=== PATIENT | male | born 1985 | race Two or more races ===

== ENCOUNTER 2025-02-24 15:42 | Emergency (ER) | payer SELFPAY ==
[~2025-02-24] VITALS: Ht 177.8 cm; Wt 100.0 kg
[2025-02-24 16:50] VITALS: BP 114/63; PULSE 95; RESP 18; TEMP 97.2; O2SAT 96
--- NOTE | 2025-02-24 16:57 | ED.PDOC ---
GI ASSESSMENT HPI Comments A 39 YEAR OLD MALE PRESENTS TO THE ED WITH COMPLAINT OF DIARRHEA. PATIENT STATES HE WENT TO [place] YESTERDAY AND ATE THE FOODS AND DRANK THE WATER WEIGHT IS LATER CAUSED HIM TO EXPERIENCE DIARRHEA, NAUSEA, AND BODY ACHES SHORTLY AFTER. PATIENT IS CONCERNED THAT THE FOOD AND WATER IN [place] MAY HAVE MADE HIM SICK. PATIENT DENIES FEVER, CHILLS, SHORTNESS OF BREATH, CHEST PAIN, ABDOMINAL PAIN, BLOOD DIARRHEA, VOMITING, HEADACHE, OR OTHER COMPLAINTS. NO OTHER SYMPTOMS OR MODIFYING FACTORS AT THIS TIME. PATIENT IS ALERT, ORIENTED X 4, AND HAS STEADY GAIT. Chief Complaint: Flu like Time Seen by MD: 16:04 Primary Care Provider: NONE Reviewed Notes: Nurses Notes, Medications, Allergies Allergies: Coded Allergies: NO KNOWN ALLERGIES (Unverified , 02/24/25) Home Meds Active Scripts Ciprofloxacin Hcl (Cipro) 500 Mg Tab, 1 TAB PO BID, #14 TAB Prov:KAROLYN PHAN 02/24/25 Loperamide HCl (Imodium A-D) 2 Mg Cap, 2 MG PO TID, #24 CAP Prov:KAROLYN PHAN 02/24/25 Dicyclomine Hcl (Dicyclomine Hcl) 20 Mg Tab, 1 TAB PO BID, #30 TAB Prov:KAROLYN PHAN 02/24/25 Information Source: Patient Mode of Arrival: Ambulatory Timing: Days Duration: Since onset, Days Prehospital treatment: None Quality: Cramping, Colicky Vomitus: None Stool: Loose, Watery Severity: Moderate Recent: None Recent Hx of: None Pain Location: None Modifying Factors: Nothing Associated sign and symptoms: Nausea, Diarrhea Past Medical History PAST MEDICAL HISTORY: Denies Surgical History: Denies all surgeries Family History Family History: Reviewed,noncontributory to illness Social History Smoker: Non-Smoker Alcohol: Denies ETOH Use Drugs: Denies Drug Use Lives In: Home Constitutional: denies: chills, diaphoresis, fatigue, fever, malaise, sweats, weakness, others EENTM: denies: blurred vision, double vision, ear bleeding, ear discharge, ear drainage, ear pain, ear ringing, eye pain, eye redness, hearing loss, mouth pain, mouth swelling, nasal discharge, nose bleeding, nose congestion, nose pain, photophobia, tearing, throat pain, throat swelling, voice changes, others Respiratory: denies: cough, hemoptysis, orthopnea, SOB at rest, shortness of breath, SOB with excertion, stridor, wheezing, others Cardiovascular: denies: chest pain, dizzy spells, diaphoresis, Dyspnea on exer tion, edema, irregular heart beat, left arm pain, lightheadedness, palpitations, PND, syncope, others Gastrointestinal: reports: diarrhea, nausea; denies: abdomen distended, abdominal pain, blood streaked bowels, constipated, dysphagia, difficulty swallowing, hematemesis, melena, poor appetite, poor fluid intake, rectal bleeding, rectal pain, vomiting, others Genitourinary: denies: burning, dysuria, flank pain, frequency, hematuria, incontinence, penile discharge, penile sore, pain, testicle pain, testicle swelling, urgency, others Neurological: denies: dizziness, fainting, headache, left sided numbness, left sided weakness, numbness, paresthesia, pre-existing deficit, right sided numbness, right sided weakness, seizure, speech problems, tingling, tremors, weakness, others Musculoskeletal: denies: back pain, gout, joint pain, joint swelling, muscle pain, muscle stiffness, neck pain, others Integumetry: denies: bruises, change in color, change in hair/nails, dryness, laceration, lesions, lumps, rash, wounds, others Allergic/Immunocompromised: denies: Difficulty Healing, Frequent Infections, Hives, Itching, others Hematologic/Lymphatic: denies: anemia, blood clots, easy bleeding, easy bruising, swollen glands, others Endocrine: denies: excessive hunger, excessive sweating, excessive thirst, excessive urination, flushing, intolerance to cold, intolerance to heat, unexplained weight gain, unexplained weight loss, others Psychiatric: denies: anxiety, bipolar disorder, depression, hopeless, panic disorder, schizophrenia, sleepless, suicidal, others All Other Systems: Reviewed and Negative Physical Exam General Appearance: No Apparent Distress, Normal HEENT: Normal ENT Inspection, PERRL/EOMI, Pharynx Normal, TMs Normal Neck: Full Range of Motion, Non-Tender, Normal, Normal Inspection Respiratory: Chest Non-Tender, Lungs Clear, No Accessory Muscle Use, No Respiratory Distress, Normal Breath Sounds Cardiovascular: No Edema, No JVD, No Murmur, No Gallop, Normal Peripheral Pulses, Regular Rate/Rhythm Breast Exam: Deferred Gastrointestinal: No Organomegaly, Non Tender, No Pulsatile Mass, Normal Bowel Sounds, Soft Genitalia: Deferred Pelvic: Deferred Rectal: Deferred Extremities: No calf tenderness, Normal capillary refill, Normal inspection, Normal range of motion, Non-tender, No pedal edema Musculoskeletal : Apperance: Normal Neurologic: Alert, resource conservation specialist II-XII nml as Tested, No Motor Deficits, Normal Affect, Normal Mood, No Sensory Deficits Cerebellar Function: Normal Reflexes: Normal Skin: Dry, Normal Color, Warm Peripheral Pulses: 2+ carotid (R), 2+ carotid (L) Lymphatic: No Adenopathy Was a procedure done? Was a procedure done?: No GI differential Dx Differential Diagnosis: Gastroenteritis, Dehydration, Food Poisoning, Viral, Other Other Differential Diagnosis TRAVELER'S DIARRHEA X-Ray, Labs, Meds, VS Vital Signs Date Time Temp Pulse Resp B/P (MAP) Pulse Ox O2 Delivery O2 Flow Rate FiO2 02/24/25 16:50 95 18 96 Room Air 02/24/25 16:50 97.2 95 18 114/63 (80) 96 97.2 02/24/25 16:30 97.2 95 18 114/83 (93) 96 97.2 Current Medications Medications (Trade) Dose Ordered Sig/Kayode Route Start Time Stop Time Status Last Admin Loperamide HCl (Imodium Capsule) 4 mg ONCE ONCE PO 02/24/25 17:00 02/24/25 17:01 DC 02/24/25 17:22 Dicyclomine HCl (Bentyl Injection) 20 mg ONCE ONCE IM 02/24/25 17:00 02/24/25 17:01 DC 02/24/25 17:22 X-Ray, Labs, Meds, VS Comment EXTERNAL MEDICAL RECORDS REVIEWED: [NONE] INDEPENDENT HISTORIANS: [NONE] SOCIAL DETERMINANTS OF HEALTH: [NONE] LABS ORDERED: NONE REVIEWED AND INTERPRETED RESULTS: NONE IMAGING ORDERED: NONE TREATMENTS ORDERED: IMODIUM 4MG PO, BENTYL 20MG IM PATIENT REPORTED FEELING MUCH BETTER AFTER RECEIVING TREATMENT. PROCEDURES PERFORMED: NONE CRITICAL CARE TIME: NONE I HAVE DISCUSSED THE PATIENT WITH THE ATTENDING PHYSICIAN AND HE AGREES WITH THE PATIENT'S PLAN OF CARE AND DISPOSITION. BASED ON HISTORY OF PRESENT ILLNESS, AND PHYSICAL EXAM, PATIENT WILL BE DISCHARGED HOME. DISCUSSED PLAN FOR DISCHARGE HOME WITH RX [IMODIUM AND BENTYL]. MEDICATION WARNINGS GIVEN. SHARED DECISION MAKING: PATIENT INSTRUCTED TO FOLLOW UP WITH PRIMARY CARE PROVIDER IN 1-2 DAYS FOR RE-EVALUATION OF SYMPTOMS. PATIENT VERBALIZES UNDERSTANDING TO RETURN TO ED FOR NEW OR WORSENING SYMPTOMS OR IF FOLLOW UP WITH PCP CANNOT BE OBTAINED. PATIENT FEELS COMFORTABLE GOING HOME AT THIS TIME. ALL QUESTIONS ADDRESSED AT TIME OF DISCHARGE. Time of 1ST Reevaluation: 18:00 Reevaluation 1ST: Improved Patient Education/Counseling: Diagnosis, Treatment, Need For Follow Up Family Education/Counseling: Diagnosis, Treatment, Need For Follow Up Medical Screening: No EMC Exist At This Time Departure 1 Departure Time of Disposition: 18:00 Impression: Primary Impression: Travelers' diarrhea Disposition: HOME / SELF CARE / HOMELESS Condition: Stable Additional Instructions: FOLLOW-UP WITH PCP IN 1 TO 2 DAYS. TAKE MEDICATIONS PRESCRIBED. RETURN TO ED FOR ANY NEW OR WORSENING SYMPTOMS. e-Prescriptions Ciprofloxacin Hcl (Cipro) 500 Mg Tab 1 TAB PO BID, #14 TAB Prov: KAROLYN PHAN 02/24/25 Loperamide HCl (Imodium A-D) 2 Mg Cap 2 MG PO TID, #24 CAP Prov: KAROLYN PHAN 02/24/25 Dicyclomine Hcl (Dicyclomine Hcl) 20 Mg Tab 1 TAB PO BID, #30 TAB Prov: KAROLYN PHAN 02/24/25 Discharged With: Self Critical Care Note Critical Care Time?: No Stability Stability form required: No I personally scribed for KAROLYN PHAN ([email or web address]) on 02/24/25 at 16:57. Electronically submitted by Armando Javier ([employer]). I personally scribed for KAROLYN PHAN ([email or web address]) on 02/24/25 at 17:55. Electronically submitted by Armando Javier ([email or web address]). KAROLYN PHAN Feb 24, 2025 16:57
[2025-02-24] MEDS: LOPERAMIDE HCL 2 MG CAP/TAB PO ONE (17:22)
[2025-02-24] MEDS: DICYCLOMINE HCL (10MG/ML) 2 ML AMPULE IM ONE (17:22)
[2025-02-24] MEDS ORDERED: CIPR-173 PO (17:57)
[2025-02-24] MEDS ORDERED: DICY20TA PO (17:57)
[2025-02-24] MEDS ORDERED: LOPE7.5C PO (17:57)
== END 2025-02-24 18:02 | disposition home or self-care (01) ==
LOC: ER 15:42
DX: R19.7 Diarrhea, unspecified (principal); R11.0 Nausea
CPT/HCPCS: 96372; 99283; J0500